=== PATIENT | female | born 1950 | race Caucasian/White ===

== ENCOUNTER → 2019-10-18 | Outpatient (CLI) | payer MEDICARE ==
[~2019-10-18] MED LIST: ATENOLOL50 MG PO; BENAZEPRIL/HCTZ PO; CALCIUM 500+D1 EACH PO; CELEBREX100 MG PO; CLARITIN10 M2 PO; FIBER PO; MULTIVITAMINS1 EAC7 PO; OMEGA 3-6-9 CO400 MG PO; RANITIDINE HCL300 MG PO; RED YEAST RICE600 MG PO; TYLENOL EXTRA500 MG PO
[2019-10-18 11:27] LABS: BLOOD UREA NITROGEN 18 mg/dL (7-26); BUN/CREATININE RATIO 22 (6-25); CREATININE, SERUM 0.83 mg/dL (0.57-1.11); EST GLOMERULAR FILTRATION RATE > 60 ML/MIN (60-)
--- NOTE | 2019-10-18 12:40 | Diagnostic Imaging Report ---
EXAM: CTA of the Abdominal Aorta WITH Contrast INDICATION: ^FIBROMUSCULAR DYSPLASIA COMPARISON: None. TECHNIQUE: Multi-detector CT technology was employed. CTA of the abdomen was performed after the administration of IV contrast. IV CONTRAST: 150 mL of Omnipaque 350 ORAL CONTRAST: None COMPLICATIONS: None RADIATION DOSE: Total DLP: 383 mGy*cm Estimated effective dose: (DLP x 0.015 x size factor) mSv CTDIvol has been reviewed. It is below the limits set by the Radiation Protocol Committee (RPC). Dose modulation, iterative reconstruction, and/or weight based adjustment of the mA/kV was utilized to reduce the radiation dose to as low as reasonably achievable. For optimization of anatomic evaluation, multiplanar reconstruction, maximum intensity projections, and advanced 3-D off-line postprocessing were performed on a dedicated stand-alone workstation under the direct supervision of the interpreting physician. FINDINGS: Potential study limitations: None. VASCULAR WITH ADVANCED 3-D OFF-LINE POSTPROCESSING: The abdominal aorta is normal in course, caliber, and contour. There is no acute aortic pathology . Aortic plaques: Mild scattered atherosclerotic disease without hemodynamically significant stenosis. The abdominal aorta measures: 2.1 cm at the supramesenteric segment 2.1 cm at the mesenteric segment 1.7 cm at the renal segment 1.6 cm at the mid infrarenal segment 1.6 cm at the aortic bifurcation. The celiac axis, SMA, and NELLI are patent. There is mild atherosclerotic disease at the origins of the mesenteric arteries and renal arteries without hemodynamically significant stenosis. There are single renal arteries bilaterally, both of which appear patent. The visualized iliac arteries are normal in caliber and contour. There are minimal atherosclerotic changes of the visualized iliac arteries. LOWER CHEST: Unremarkable. ABDOMEN: The liver, gallbladder, spleen, and pancreas appear normal. The adrenal glands appear normal. Both kidneys are normal in size, shape, and density. There is no abnormal mass or hydronephrosis. PELVIS: There is no significant retroperitoneal adenopathy. No free fluid or free air within the abdomen or pelvis. The bowel appears unremarkable. The urinary bladder appears normal. BONES: Unremarkable IMPRESSION: Mild atherosclerotic disease of the abdominal aorta without hemodynamically significant stenosis. No aneurysm or specific evidence of vasculitis. No acute aortic pathology. Signed by: Guru Zapien MD on 10/18/2019 12:38 PM
== END ==
LOC: CT 10:34
PROVIDERS: ATTEND Internal Medicine Interventional Cardiology
DX: Q78.1 Polyostotic fibrous dysplasia (principal)
CPT/HCPCS: 36415; 74175; 82565; 84520